=== PATIENT | male | born 1945 | race Caucasian/White ===

== ENCOUNTER 2019-04-08 21:34 | Emergency (ER) | payer MEDICARE, OTHER, SELFPAY ==
[2019-04-08 21:50] VITALS: BP 152/65; PULSE 58; RESP 15; TEMP 36.8; O2SAT 99; BMI 28.8
[2019-04-08] MEDS: KETOROLAC 60 MG/2 ML VIAL 30 MG IM (22:11)
[2019-04-08] MEDS: diazePAM 5 MG TABLET PO (22:11)
--- NOTE | 2019-04-08 22:11 | ED.BACK ---
HPI - Back Pain/Injury General Chief Complaint: Back Pain/Injury Stated Complaint: BACK AND HIP PAIN, UNABLE TO WALK Time Seen by Provider: 04/08/19 21:52 Source: patient Mode of arrival: ambulatory Limitations: no limitations History of Present Illness HPI Narrative: The patient is here with low back pain and spasm. He has been experiencing back pain for 2 weeks, increased today with activity. He has had no trauma at any time during these 2 weeks. 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 He assumes chronic back problems, but has not required treatment for chronic back problems. He arrives complaining of worsening pain and spasm. He denies associated bowel or bladder incontinence. He has no numbness or weakness in the lower extremities. He has a history of gout for which he takes allopurinol. He is having no current gout symptoms. He denies dysuria hematuria. He has no abdominal symptoms. He has no fever or recent illness. Related Data Previous Rx's Medication Instructions Recorded methocarbamol [Robaxin-750] 750 mg PO Q6H PRN #30 tab 04/09/19 Allergies Allergy/AdvReac Type Severity Reaction Status Date / Time acetaminophen [From Percocet] Allergy Verified 04/08/19 21:52 Opioids - Morphine Analogues Allergy Verified 04/08/19 21:53 oxycodone [From Percocet] Allergy Verified 04/08/19 21:52 Review of Systems Review of Systems ROS Unobtainable: All systems reviewed & are unremarkable except as noted in HPI and below Constitutional Denies chills, Denies fever(s) and Denies weakness ENT Ears, Nose, Mouth, and Throat: Denies dizziness Cardiovascular Denies chest pain, Denies irregular heart rhythm, Denies lightheadedness and Denies dyspnea Respiratory Denies cough and Denies dyspnea Gastrointestinal Gastrointestinal: Denies abdominal pain, Denies change in bowel habits, Denies diarrhea, Denies nausea and Denies vomiting Genitourinary Denies dysuria and Denies testicular pain Musculoskeletal Reports as per HPI and Denies numbness Integumentary/Breasts Denies erythema, Denies rash and Denies wounds Neurologic Denies confusion, Denies dizziness, Denies numbness and Denies weakness Psychiatric Denies confusion and Denies depression [facility] Medical History (Updated 04/09/19 @ 00:51 by Krishna Hi MD) Coronary artery disease (Acute) Gout (Acute) Hyperlipidemia (Acute) Hypertension (Acute) Surgical History (Updated 04/08/19 @ 22:26 by Krishna Hi MD) S/P CABG (coronary artery bypass graft) (Acute) Social History Smoking Status: Never smoker Social History Smoking Status: Never smoker Exam Initial Vital Signs Initial Vital Signs: Vital Signs Temperature 98.3 F 04/08/19 21:50 Pulse Rate 58 L 04/08/19 21:50 Respiratory Rate 15 04/08/19 21:50 Blood Pressure 152/65 H 04/08/19 21:50 Pulse Oximetry 99 04/08/19 21:50 Const General: cooperative and well developed Nutritional Appearance: well nourished Orientation: alert, awake and oriented x3 GI Inspection: non-distended Palpation: soft, no hepatosplenomegaly, No guarding and No tender Auscultation: normal bowel sounds Back/Spine/Pelvis Back: No CVA tenderness Other: Bilateral tenderness and spasm in the lumbar region, left SI tenderness. No palpable deformity. Skin General: no rashes or lesions noted Neuro Other: Blue and sensory exam of the lower extremities is intact. Extrem General: full ROM, no clubbing, cyanosis or edema, no pedal edema and no calf tenderness Other: Full range of motion both lower extremities. No deficits. Normal peripheral pulses. Course Course Narrative: The patient has achieved moderate relief with Toradol and Valium. He is lying flat and resting. X-ray shows lumbar DJD, particularly L5-S1. [facility] recommendation to follow up with physical therapy and his primary care doctor when returning home. Orders Ordered: ED Orders 04/08/19 22:41 XR lumbar spine 2-3V Stat Discontinued Medications Diazepam (Valium) 5 mg PO NOW ONE Stop: 04/08/19 22:02 Last Admin: 04/08/19 22:11 Dose: 5 mg Ketorolac Tromethamine (Toradol) 30 mg IM NOW ONE Stop: 04/08/19 22:02 Last Admin: 04/08/19 22:11 Dose: 30 mg Vital Signs - 8 hr 04/08/19 21:50 04/08/19 23:22 Temperature 98.3 F Pulse Rate 58 L 68 Respiratory Rate 15 15 Blood Pressure 152/65 H Blood Pressure [Left Arm] 132/61 Pulse Oximetry 99 100 MDM - Back Pain/Injury Lab Data Urine Dip Bedside Urine Glucose Negative Bedside Urine Bilirubin - Negative Bedside Urine Ketone - Negative Urine Specific [place] 1.025 Bedside Urine Occult Blood - Negative Bedside Urine pH 5.5 Bedside Urine Protein - Negative Bedside Urine Urobilinogen +/- 1mg Bedside Urine Nitrite - Negative Bedside Urine Leukocytes - Negative Esterase Imaging Data Lumbar x-ray: My impression: Moderate lumbar spine DJD. 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 Robaxin every 6 hr for spasm. I would recommend follow-up with physical therapy regarding the low back pain. Also, follow up with your primary care doctor for ongoing management of the back pain. Prescriptions: New methocarbamol [Robaxin-750] 750 mg tablet 750 mg PO Q6H PRN (Reason: spasms) Qty: 30 RF: 0
--- NOTE | 2019-04-08 22:17 | ED_ITS ---
HPI - Back Pain/Injury General Chief Complaint: Back Pain/Injury Stated Complaint: BACK AND HIP PAIN, UNABLE TO WALK Time Seen by Provider: 04/08/19 21:52 Source: patient Mode of arrival: ambulatory Limitations: no limitations History of Present Illness HPI Narrative: The patient is here with low back pain and spasm. He has been experiencing back pain for 2 weeks, increased today with activity. He has had no trauma at any time during these 2 weeks. 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 He assumes chronic back problems, but has not required treatment for chronic back problems. He arrives complaining of worsening pain and spasm. He denies associated bowel or bladder incontinence. He has no numbness or weakness in the lower extremities. He has a history of gout for which he takes allopurinol. He is having no current gout symptoms. He denies dysuria hematuria. He has no abdominal symptoms. He has no fever or recent illness. Related Data Previous Rx's Medication Instructions Recorded methocarbamol [Robaxin-750] 750 mg PO Q6H PRN #30 tab 04/09/19 Allergies Allergy/AdvReac Type Severity Reaction Status Date / Time acetaminophen [From Percocet] Allergy Verified 04/08/19 21:52 Opioids - Morphine Analogues Allergy Verified 04/08/19 21:53 oxycodone [From Percocet] Allergy Verified 04/08/19 21:52 Review of Systems Review of Systems ROS Unobtainable: All systems reviewed & are unremarkable except as noted in HPI and below Constitutional Denies chills, Denies fever(s) and Denies weakness ENT Ears, Nose, Mouth, and Throat: Denies dizziness Cardiovascular Denies chest pain, Denies irregular heart rhythm, Denies lightheadedness and Denies dyspnea Respiratory Denies cough and Denies dyspnea Gastrointestinal Gastrointestinal: Denies abdominal pain, Denies change in bowel habits, Denies diarrhea, Denies nausea and Denies vomiting Genitourinary Denies dysuria and Denies testicular pain Musculoskeletal Reports as per HPI and Denies numbness Integumentary/Breasts Denies erythema, Denies rash and Denies wounds Neurologic Denies confusion, Denies dizziness, Denies numbness and Denies weakness Psychiatric Denies confusion and Denies depression [facility] Medical History (Updated 04/09/19 @ 00:51 by Krishna Hi MD) Coronary artery disease (Acute) Gout (Acute) Hyperlipidemia (Acute) Hypertension (Acute) Surgical History (Updated 04/08/19 @ 22:26 by Krishna Hi MD) S/P CABG (coronary artery bypass graft) (Acute) Social History Smoking Status: Never smoker Social History Smoking Status: Never smoker Exam Initial Vital Signs Initial Vital Signs: Vital Signs Temperature 98.3 F 04/08/19 21:50 Pulse Rate 58 L 04/08/19 21:50 Respiratory Rate 15 04/08/19 21:50 Blood Pressure 152/65 H 04/08/19 21:50 Pulse Oximetry 99 04/08/19 21:50 Const General: cooperative and well developed Nutritional Appearance: well nourished Orientation: alert, awake and oriented x3 GI Inspection: non-distended Palpation: soft, no hepatosplenomegaly, No guarding and No tender Auscultation: normal bowel sounds Back/Spine/Pelvis Back: No CVA tenderness Other: Bilateral tenderness and spasm in the lumbar region, left SI tenderness. No palpable deformity. Skin General: no rashes or lesions noted Neuro Other: Blue and sensory exam of the lower extremities is intact. Extrem General: full ROM, no clubbing, cyanosis or edema, no pedal edema and no calf tenderness Other: Full range of motion both lower extremities. No deficits. Normal peripheral pulses. Course Course Narrative: The patient has achieved moderate relief with Toradol and Valium. He is lying flat and resting. X-ray shows lumbar DJD, particularly L5- S1. [facility] recommendation to follow up with physical therapy and his primary care doctor when returning home. Orders Ordered: ED Orders 04/08/19 22:41 XR lumbar spine 2-3V Stat Discontinued Medications Diazepam (Valium) 5 mg PO NOW ONE Stop: 04/08/19 22:02 Last Admin: 04/08/19 22:11 Dose: 5 mg Ketorolac Tromethamine (Toradol) 30 mg IM NOW ONE Stop: 04/08/19 22:02 Last Admin: 04/08/19 22:11 Dose: 30 mg Vital Signs - 8 hr 04/08/19 21:50 04/08/19 23:22 Temperature 98.3 F Pulse Rate 58 L 68 Respiratory Rate 15 15 Blood Pressure 152/65 H Blood Pressure [Left Arm] 132/61 Pulse Oximetry 99 100 MDM - Back Pain/Injury Lab Data Urine Dip Bedside Urine Glucose Negative Bedside Urine Bilirubin - Negative Bedside Urine Ketone - Negative Urine Specific [place] 1.025 Bedside Urine Occult Blood - Negative Bedside Urine pH 5.5 Bedside Urine Protein - Negative Bedside Urine Urobilinogen +/- 1mg Bedside Urine Nitrite - Negative Bedside Urine Leukocytes - Negative Esterase Imaging Data Lumbar x-ray: My impression: Moderate lumbar spine DJD. Discharge Plan Departure Patient Disposition: Home Clinical Impression: Degenerative joint disease (DJD) of lumbar spine Qualifiers: Spinal osteoarthritis complication: without myelopathy or radiculopathy Q ualified Code(s): M47.816 - Spondylosis without myelopathy or radiculopathy, lumbar region Instructions: DI for Osteoarthritis Activity Restrictions/Additional Instructions: Aleve 2 tablets 2 times daily for pain. Robaxin every 6 hr for spasm. I would recommend follow-up with physical therapy regarding the low back pain. Also, follow up with your primary care doctor for ongoing management of the back pain. Prescriptions: New methocarbamol [Robaxin-750] 750 mg tablet 750 mg PO Q6H PRN (Reason: spasms) Qty: 30 RF: 0
--- NOTE | 2019-04-08 22:41 | DI.RAD.S_ITS ---
PROCEDURE: XR LUMBAR SPINE 2-3V INDICATIONS: back pain TECHNIQUE: 3 views of the lumbar spine were acquired. COMPARISON: None. FINDINGS: Bones: 5 [id number] vertebrae are present. Minimal anterolisthesis of L5 on S1. Moderate DDD [place] by endplate sclerosis, intervertebral disc space height loss and prominent anterior osteophytes most pronounced at the L5-S1 level. No vertebral body compression fractures. SI joints appear symmetric. No suspicious bony lesions. Soft tissues: Overlying bowel gas pattern is normal. Vascular calcifications. No suspicious soft tissue calcifications. IMPRESSION: No acute osseous abnormality. Moderate lumbar spine DDD. Dictated by: Adam Burrell M.D. on 04/09/2019 at 7:58 Approved by: Adam Burrell M.D. on 04/09/2019 at 8:00
[2019-04-08 23:22] VITALS: BP 132/61; PULSE 68; RESP 15; O2SAT 100
[2019-04-09 01:04] VITALS: BP 119/74; PULSE 69; RESP 17; O2SAT 99
== END 2019-04-09 00:52 | disposition home or self-care (01) ==
PROVIDERS: Emergency Provider Emergency Medicine
DX: M47.816 Spondylosis without myelopathy or radiculopathy, lumbar region (principal)
CPT/HCPCS: 72100; 81003; 96372; 99282; 99283; J1885